=== PATIENT | male | born 1995 | race Caucasian/White ===

== ENCOUNTER → 2018-01-11 | Outpatient (CLI) | payer OTHER | LOC: CIMAGING 15:07 | PROVIDERS: ATTEND Family Medicine | DX: R10.32 Left lower quadrant pain (principal) | CPT/HCPCS: 76882-PO ==

== ENCOUNTER → 2018-01-12 | Outpatient (CLI) | payer OTHER | LOC: CIMAGING 15:21 | PROVIDERS: ATTEND Family Medicine | DX: M21.42 Flat foot [pes planus] (acquired), left foot (principal) | CPT/HCPCS: 73630-PO ==